=== PATIENT | male | born 1990 | race Caucasian/White ===

== ENCOUNTER 2021-01-25 14:37 | Emergency (ER) | payer OTHER ==
[~2021-01-25 14:37] MED LIST: BACTRIM DS TAB1 EACH PO
== END 2021-01-25 15:51 | disposition home or self-care (01) ==
LOC: ER1 14:37
DX: S20.211A Contusion of right front wall of thorax, initial encounter (principal); W22.8XXA Striking against or struck by other objects, initial encounter; F17.200 Nicotine dependence, unspecified, uncomplicated
CPT/HCPCS: 71111; 99283